=== PATIENT | male | born 1985 | race Caucasian/White ===

== ENCOUNTER 2016-12-03 13:53 | Emergency (ER) | payer SELFPAY ==
[~2016-12-03] VITALS: Ht 167.6 cm; Wt 73.0 kg
[2016-12-03 13:54] VITALS: BP 141/80; PULSE 78; RESP 14; TEMP 97.6; O2SAT 97
[2016-12-03] MEDS ORDERED: ROBA500T PO (15:30)
[2016-12-03] MEDS ORDERED: NAPR500 PO (15:30)
[2016-12-03] MEDS ORDERED: KETOROLAC TROMETHAMINE 60 MG/2 ML (IM) VIAL IM ONE (15:30)
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
--- NOTE | 2016-12-03 16:00 | RADRPT ---
EXAM DATE/TIME: 12/03/2016 15:39 [facility] COMPARISON: No previous studies available for comparison. INDICATIONS : Left knee pain, patient twisted knee yesterday. MEDICAL HISTORY : None. SURGICAL HISTORY : Left knee surgery in 2004. ENCOUNTER: Initial ACUITY: 2 days PAIN SCORE: 9/10 LOCATION: Left knee. FINDINGS: There is a moderate sized suprapatellar knee joint effusion. Moderate osteoarthritis is noted involv ing the patellofemoral and medial femorotibial joints. There is a calcified density adjacent to the lateral aspect of the upper patella which is indeterminate. No acute fracture or dislocation is note d. CONCLUSION: 1. Moderate sized suprapatellar knee joint effusion. 2. Moderate osteoarthritis involving the patellofemoral and medial femorotibial joints. 3. Indeterminate calcified density adjacent to the superior lateral aspect of the patella. This does not appear to represent an acute fracture fragment. Dariel Obrien MD on December 03, 2016 at 15:53 Board Certified Radiologist. This report was verified electronically.
== END 2016-12-03 16:22 | disposition home or self-care (01) ==
LOC: NEPB 13:53
DX: S86.812A Strain of other muscle(s) and tendon(s) at lower leg level, left leg, initial encounter (principal); X50.1XXA Overexertion from prolonged static or awkward postures, initial encounter; Z72.0 Tobacco use
CPT/HCPCS: 73564; 96372; 99283; J1885

== ENCOUNTER 2017-02-25 12:28 | Emergency (ER) | payer SELFPAY ==
[~2017-02-25 12:28] MED LIST: NAPR500 PO; ROBA500T PO
[2017-02-25 12:31] VITALS: BP 126/74; PULSE 85; RESP 16; TEMP 97.8; O2SAT 99
--- NOTE | 2017-02-25 12:40 | PD ---
Physical Exam Time Seen by Provider: 12:39 Narrative 31 y/o male presents with L knee pain. Denies acute injury but he walks a lot. VSS Seen at triage desk. Awaiting bed placement. Data Data Last Documented VS Vital Signs Date Time Temp Pulse Resp B/P Pulse Ox O2 Delivery O2 Flow Rate FiO2 02/25/17 12:31 97.8 85 16 126/74 99 MDM Medical Record Reviewed: Yes Supervised Visit with THO: Calvin Sommers February 25, 2017 12:40
[2017-02-25] MEDS ORDERED: TYLE325T PO (12:47)
[2017-02-25] MEDS ORDERED: NAPR220T95 PO (12:47)
[2017-02-25] MEDS ORDERED: MOTR200T4 PO (12:47)
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
== END 2017-02-25 13:44 | disposition home or self-care (01) ==
LOC: NEPK 12:28
DX: S86.912D Strain of unspecified muscle(s) and tendon(s) at lower leg level, left leg, subsequent encounter (principal); Z72.0 Tobacco use; Z86.59 Personal history of other mental and behavioral disorders; X58.XXXD Exposure to other specified factors, subsequent encounter
CPT/HCPCS: 99283

== ENCOUNTER → 2017-03-14 | Outpatient (CLI) | payer SELFPAY ==
[~2017-03-14] MED LIST changes: +BACT800T5 PO; +CEPH-460 PO; +IBUP800T23 PO; +MOTR200T4 PO; +NAPR220T95 PO; -NAPR500 PO; -ROBA500T PO; +TYLE325T PO
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
== END ==
LOC: HRAD 07:08
PROVIDERS: ATTEND Orthopaedic Surgery
DX: M23.42 Loose body in knee, left knee (principal)
CPT/HCPCS: 73721

== ENCOUNTER 2017-04-07 06:49 | Emergency (ER) | payer OTHER ==
[~2017-04-07] VITALS: Ht 175.3 cm; Wt 75.0 kg
[~2017-04-07 06:49] MED LIST changes: -BACT800T5 PO; -CEPH-460 PO; -IBUP800T23 PO
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
[2017-04-07 07:15] VITALS: BP 152/92; PULSE 105; RESP 18; TEMP 99.1; O2SAT 100
[2017-04-07 07:38] LABS: AUTOMATED NEUTROPHIL # 9.5 TH/MM3 (1.8-7.7); BASOPHIL # 0.1 TH/MM3 (0-0.2); BASOPHIL % 0.6 % (0.0-2.0); EOSINOPHIL % 0.2 % (0.0-4.0); HEMATOCRIT 43.2 % (39.0-51.0); HEMO FLAGS DIFF FINAL; LYMPH % 5.7 % (9.0-44.0); LYMPHOCYTE # 0.7 TH/MM3 (1.0-4.8); MEAN CELL VOLUME 91.6 FL (80.0-100.0); MEAN CORPUSCULAR HEMOGLOBIN 31.6 PG (27.0-34.0); MEAN CORPUSCULAR HGB CONC 34.5 % (32.0-36.0); NEUT % 83.5 % (16.0-70.0); PLATELET COUNT 203 TH/MM3 (150-450); RED BLOOD COUNT 4.72 MIL/MM3 (4.50-5.90); RED CELL DISTRIBUTION WIDTH 14.4 % (11.6-17.2); WHITE BLOOD COUNT 11.4 TH/MM3 (4.0-11.0)
[2017-04-07 07:40] LABS: AMPHETAMINE, URINE POS (NEG); BARBITURATES, URINE NEG (NEG); COCAINE, URINE NEG (NEG)
[2017-04-07 07:50] LABS: ALT (GPT) 35 U/L (12-78); ANION GAP 9 MEQ/L (5-15); AST (GOT) 40 U/L (15-37); BICARBONATE 28.5 MEQ/L (21.0-32.0); BLOOD UREA NITROGEN 14 MG/DL (7-18); CHLORIDE 103 MEQ/L (98-107); GLOMERULAR FILTRATION RATE 59 ML/MIN (>89); POTASSIUM 3.4 MEQ/L (3.5-5.1); SODIUM (NA) 140 MEQ/L (136-145)
[2017-04-07 07:52] LABS: ALKALINE PHOSPHATASE 129 U/L (45-117); TOTAL BILIRUBIN ADULT 0.4 MG/DL (0.2-1.0)
[2017-04-07] MEDS ORDERED: ACETAMINOPHEN 325 MG TAB PO ONE (08:30)
[2017-04-07] MEDS ORDERED: IBUPROFEN 800 MG TAB PO ONE (21:45)
[2017-04-07 22:16] VITALS: BP 150/100; PULSE 73; RESP 19; O2SAT 100
[2017-04-08 02:00] VITALS: BP_SYST 122; BP_SYST 136; BP_DIAS 68; BP_DIAS 74; PULSE 58; PULSE 73; RESP 18; O2SAT 97; O2SAT 99
[2017-04-08 06:22] VITALS: BP 139/83; PULSE 55; RESP 18; O2SAT 100
[2017-04-08 10:43] VITALS: BP 137/94; PULSE 67; RESP 18; O2SAT 100
--- NOTE | 2017-04-08 13:49 | PD ---
History of Present Illness Chief Complaint: Psychiatric Symptoms Time Seen by Provider: 13:00 Travel History International Travel<30 Days: No Contact w/Intl Traveler<30days: No Known affected area: No Legal Status Legal Status: Olea Act Ole[place] Act Signed By: Herlinda Alvares History of Present Illness: 31-year-old male with recent history of methamphetamine abuse, cocaine abuse, heroin abuse and marijuana use. According to the Olea act, he was running around his apartment complex pulling fire alarms, stating he had killed himself , etc. At this time the patient is no longer intoxicated and he is much more cognizant of his situation. Patient admits to the drug abuse that he engaged in yesterday. However at this time he is denying any psychotic symptoms. He has no suicidal or homicidal ideation, plan or intent. His psych condition is no longer intoxicated. His cognition is intact and he is verbally catalina for safety. He understands that he was engaging in dangerous behavior yesterday and admits he wanted the police to take him into protective custody. PFSH Past Medical History Anxiety: Yes Depression: Yes Psychiatric History Psychiatric History Hx Psychiatric Treatment: refuse to answer. Patient now stating he has been treated for substance abuse in the past. History of Inpatient Treatment: No Guns or firearms in home: No Social History Hx Alcohol Use: Yes (ETOH) Hx Tobacco Use: Yes Substance Use Type: Marijuana, Amphetamines-Stimulants, Heroin Other Substances Used: refuse to answer Hx of Substance Use Treatment: Yes Allergies-Medications (Allergen,Severity, Reaction): Coded Allergies: No Known Allergies (Verified , 04/07/17) Reported Meds & Prescriptions Reported Meds & Active Scripts Active Reported Tylenol (Acetaminophen) 325 Mg Tab 2,500 Mg PO ONCE Motrin Ib (Ibuprofen) 200 Mg Tab 800 Mg PO Q4H PRN Aleve (Naproxen Sodium) 220 Mg Tab 220 Mg PO BID PRN Review of Systems Except as stated in HPI: all other systems reviewed are Neg Exam Alert: Yes [place]: Person, Place, Date, Situation Mood: Calm Affect: Appropriate Speech: Clear, Logical Eye Contact: Normal Memory Intact: Immediate, Recent, Remote Insight/Judgement Adequate MDM Medical Decision Making Medical Record Reviewed: Yes Assessment/Plan Patient may have an underlying psychiatric disorder that is greatly exacerbated by his use of drugs. This physician is quite concerned about his dangerousness when he becomes intoxicated with substances that may set off a psychotic reaction in him. According to the multiple reports reviewed, the patient was certainly psychotic with bizarre behavior yesterday and put himself at risk for harm by police or harm by others or harm by himself. This was discussed with the patient at length and he was strongly encouraged to go to [facility] for drug and alcohol treatment. His possible underlying psychiatric diagnosis cannot be ascertained while he continues to use illicit substances. He is being discharged because at this moment he does not meet Olea act criteria and he does not wish to be hospitalized. However if he were to get worse, he was asked to come back for further evaluation and treatment. 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
== END 2017-04-08 13:15 | disposition home or self-care (01) ==
LOC: NEPD 06:49 → NEPJ 04-08 13:15
DX: F23 Brief psychotic disorder (principal); F15.10 Other stimulant abuse, uncomplicated; F14.10 Cocaine abuse, uncomplicated; F12.90 Cannabis use, unspecified, uncomplicated; Z87.891 Personal history of nicotine dependence
CPT/HCPCS: 80053; 80307; 85025; 99284

== ENCOUNTER 2017-04-16 15:37 | Emergency (ER) | payer SELFPAY ==
[~2017-04-16] VITALS: Ht 167.6 cm; Wt 65.9 kg
[2017-04-16 15:42] VITALS: BP 144/91; PULSE 78; RESP 12; TEMP 99.8; O2SAT 100
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
[2017-04-16] MEDS ORDERED: CEPH-460 PO (17:09)
[2017-04-16] MEDS ORDERED: BACT800T5 PO (17:09)
[2017-04-16] MEDS ORDERED: IBUP800T23 PO (17:09)
--- NOTE | 2017-04-16 17:09 | PD ---
HPI Chief Complaint: Skin Problem Time Seen by Provider: 17:07 Travel History International Travel<30 days: No Contact w/Intl Traveler<30days: No Traveled to known affect area: No History of Present Illness HPI 31-year-old male presents to emergency Department with complaint of an abrasion to his right middle finger that occurred about 2 weeks ago that developed swelling, redness, and pain about 2-3 days ago. Reports being up-to-date on his tetanus vaccination. Denies fever, vomiting. Has not taken any medications or drainage from it to the base symptoms. No known allergies. Has no other medical complaints. No other modifying factors or associated signs and symptoms. PFSH Past Medical History Anxiety: Yes Depression: Yes Social History Alcohol Use: Yes (ETOH) Tobacco Use: Yes Allergies-Medications (Allergen,Severity, Reaction): Coded Allergies: No Known Allergies (Verified , 04/16/17) Reported Meds & Prescriptions Reported Meds & Active Scripts Active Bactrim DS (Sulfamethoxazole-Trimethoprim) 800-160 Mg Tab 1 Tab PO BID 10 Days Keflex (Cephalexin) 500 Mg Cap 500 Mg PO Q6H 10 Days Ibuprofen 800 Mg Tab 800 Mg PO Q6HR PRN Reported Tylenol (Acetaminophen) 325 Mg Tab 2,500 Mg PO ONCE Motrin Ib (Ibuprofen) 200 Mg Tab 800 Mg PO Q4H PRN Aleve (Naproxen Sodium) 220 Mg Tab 220 Mg PO BID PRN Review of Systems Except as stated in HPI: all other systems reviewed are Neg Physical Exam Narrative GENERAL: Well-nourished, well-developed male patient, in no acute distress; afebrile, nontoxic-appearing SKIN: There is an indurated area to the dorsal aspect of the right middle finger which measures about 1 cm in diameter. It is fluctuant but there is no pointing or drainage. There is a zone of inflammation around it but no lymphangitis. Fingers with full range of motion; less than 3 second cap refill ; sensory intact. HEAD: Atraumatic. Normocephalic. EYES: Pupils equal and round. No scleral icterus. No injection or drainage. ENT: Mucosa pink and moist. Airway patent. NECK: Trachea midline. CARDIOVASCULAR: Regular rate. RESPIRATORY: No accessory muscle use. GASTROINTESTINAL: Flat. MUSCULOSKELETAL: No obvious deformities. No clubbing. No cyanosis. No edema. NEUROLOGICAL: Awake and alert. Oriented 3. No obvious cranial nerve deficits. Motor grossly within normal limits. Normal speech. PSYCHIATRIC: Appropriate mood and affect; insight and judgment normal. Data Data Last Documented VS Vital Signs Date Time Temp Pulse Resp B/P Pulse Ox O2 Delivery O2 Flow Rate FiO2 04/16/17 15:42 99.8 78 12 144/91 100 Orders Ibuprofen (Motrin) (04/16/17 17:15) Wound Culture And Gram Stain (04/16/17 17:09) MDM Medical Decision Making Medical Screen Exam Complete: Yes Emergency Medical Condition: Yes Medical Record Reviewed: Yes Differential Diagnosis Skin abscess, wound infection, cellulitis Narrative Course 31-year-old male with a fluctuant abscess to the dorsal aspect of his right middle finger. See my procedure note for incision and drainage of the abscess. Wound culture pending. Tetanus is up-to-date. Ibuprofen administered in the ER. Bactrim, Keflex, ibuprofen prescribed for home. Patient verbalizes understanding and agreement with treatment plan. Patient is medically cleared and stable for discharge. Discussed reasons to return to the emergency department. Instructed patient to follow up with primary care provider. Patient agrees with treatment plan. The patients vital signs are stable and the patient is stable for outpatient follow-up and treatment. Patient discharged home, stable and in no acute distress. Procedures Procedure Narrative INCISION AND DRAINAGE OF ABSCESS: The area was prepped and was sterilely draped. An 18-gauge needle was used to make a pinpoint puncture to the area of abscess. Cultures were obtained. The abscess was drained an irrigated with normal saline. Sterile dressing applied. Diagnosis Primary Impression: Skin abscess Qualified Code: L02.511 - Cutaneous abscess of right hand Referrals: Primary Care Physician Patient Instructions: Abscess (ED), Abscess Follow-up (ED), Abscess Incision and Drainage (ED), General Instructions Departure Forms: Tests/Procedures, Work Release Enter return to work date: Apr 17, 2017 Additional Instructions: Complete full course of antibiotics Warm compresses to the affected area Keep area clean and dry Ibuprofen or Tylenol as directed and as needed for pain and inflammation Follow-up with primary care provider Return to emergency department immediately with worsening of symptoms Med/Other Pt SpecificInfo: Prescription(s) given Scripts Sulfamethoxazole-Trimethoprim (Bactrim DS)800-160 Mg Tab1 Tab PO BID 10 Days Ref 0 Prov:Leona Tran 04/16/17 Cephalexin (Keflex)500 Mg [id number] Mg PO Q6H 10 Days Ref 0 Prov:Leona Tran 04/16/17 Ibuprofen 800 Mg [id number] Mg PO Q6HR PRN (PAIN) #30 TAB Ref 0 Prov:Leona Tran 04/16/17 Disposition: 01 DISCHARGE HOME Condition: Stable Leona Tran Apr 16, 2017 17:09
[2017-04-16] MEDS ORDERED: IBUPROFEN 800 MG TAB PO ONE (17:15)
== END 2017-04-16 17:24 | disposition home or self-care (01) ==
LOC: NEPK 15:37
DX: L02.511 Cutaneous abscess of right hand (principal); F41.9 Anxiety disorder, unspecified; F32.9 Major depressive disorder, single episode, unspecified; Z72.0 Tobacco use; Z79.899 Other long term (current) drug therapy; Z79.2 Long term (current) use of antibiotics; Z79.1 Long term (current) use of non-steroidal anti-inflammatories (NSAID); Z79.82 Long term (current) use of aspirin
CPT/HCPCS: 10060; 86403; 87070; 87185; 87186